=== PATIENT | male | born 1955 | race Caucasian/White ===

== ENCOUNTER 2021-05-20 12:21 | Emergency (ER) | payer OTHER ==
[~2021-05-20] VITALS: Ht 180.3 cm; Wt 65.8 kg
[2021-05-20] MEDS ORDERED: IV NORMAL SALINE 1000 ML BAG IV ONE ×2 (12:30→13:00)
--- NOTE | 2021-05-20 12:53 | NUR ---
PT IS IN ROOM #2A. DR MAYER EVALUATED THE PT.
[2021-05-20 13:06] LABS: HEMATOCRIT 34.5 % (36.7-47.1); MEAN CORPUSCULAR HEMOGLOBIN 25.8 uug (23.8-33.4); MEAN CORPUSCULAR VOLUME 80.9 fL (73.0-96.2); PLATELET COUNT (AUTO) 346 K/uL (152-348)
--- NOTE | 2021-05-20 13:11 | NUR ---
CODE SEPSIS WAS CALLED BY DR MAYER. CODE SEPSIS PROTOCOL STARTED.
[2021-05-20 13:19] LABS: CARBON DIOXIDE 22 mmol/L (21-32); CHLORIDE 101 mmol/L (98-107); CREATININE 3.4 mg/dL (0.6-1.3); GLUCOSE 153 mg/dL (74-106); POTASSIUM 5.1 mmol/L (3.5-5.1); UREA NITROGEN, BLOOD 75 mg/dL (7-18)
[2021-05-20 13:25] LABS: ALANINE AMINOTRANSFERASE 83 U/L (16-63); ALKALINE PHOSPHATASE 79 U/L (50-136); ASPARTATE AMINOTRANSFERASE 141 U/L (15-37); BILIRUBIN,DIRECT 0.4 mg/dL (0.0-0.2); BILIRUBIN,TOTAL 0.5 mg/dL (0.2-1.0); TOTAL PROTEIN, SERUM 8.2 g/dL (6.4-8.2)
[2021-05-20 13:28] LABS: ETHANOL < 3 MG/DL (0-0)
[2021-05-20 13:32] LABS: ACETAMINOPHEN < 2.0 ug/mL (10-30)
[2021-05-20 13:54] LABS: THYROID STIMULATING HORMONE 0.865 mIU/mL (0.358-3.740)
[2021-05-20] MEDS ORDERED: VANCOMYCIN IV 1,000 MG in IV DEXTROSE 5% 250 ML IV ONE (14:00)
[2021-05-20] MEDS ORDERED: CEFTRIAXONE 1 G in IV DEXTROSE 5% 50 ML IV ONE (14:00)
[2021-05-20] MEDS ORDERED: METRONIDAZOLE 500 MG/NS 100ML 100 ML IV ONE ×2 (14:00→14:59)
[2021-05-20] MEDS ORDERED: CEFTRIAXONE /D5W 50ML IVPB **ER PYXIS IV ONE (14:38)
[2021-05-20] MEDS ORDERED: VANCOMYCIN IV 200 ML ONE (15:00)
[2021-05-20 17:05] LABS: *BILIRUBIN,URIN NEGATIVE (NEGATIVE); *BLOOD, URINE 3+ (NEGATIVE); *COLOR,URINE YELLOW (YELLOW); *KETONES,URINE NEGATIVE (NEGATIVE); LEUKOCYTE ESTERASE ,URINE 3+ (NEGATIVE); NITRITE, URINE NEGATIVE (NEGATIVE); UGLUCOSE NEGATIVE (NEGATIVE)
[2021-05-20 17:14] LABS: *AMPHETAMINE, URINE NEGATIVE (NEGATIVE); *CANNABINOID, URINE NEGATIVE (NEGATIVE); *COCCAINE, URINE NEGATIVE (NEGATIVE); *OPIATE, URINE NEGATIVE (NEGATIVE); *PHENCYCLIDINE SCREEN,URINE NEGATIVE (NEGATIVE)
[2021-05-20 17:16] LABS: *CLARITY,URINE TURBID (CLEAR)
[2021-05-20 17:17] LABS: WBC,URINE TNTC /HPF (0-3)
[2021-05-20 17:19] LABS: BACTERIA,URINE MODERATE /HPF (NONE SEEN); SQUAMOUS EPITHELIAL CELL,UR FEW /HPF (NONE SEEN)
--- NOTE | 2021-05-20 17:45 | NUR ---
Received telephone call from Joelle from [facility] who stated pt will be going to [facility], room 4050A, call [phone] for report, Dr. Howe accepting. [facility] ambulance to [facility] pt, eta 1830.
--- NOTE | 2021-05-20 18:18 | NUR ---
REPORT GIVEN TO [facility] [place] R[facility] ALEGRIA. AMBULANCE LORE IS 1830. PT IS RESTING IN BED COMFORTABLY.
--- NOTE | 2021-05-20 19:06 | NUR ---
REPORT WAS GIVEN TO [facility] RN. PT WAS TRANSFERED TO [facility] [place] [facility]IA [facility].
== END 2021-05-20 19:11 | disposition short-term general hospital (02) ==
LOC: ER 12:21
DX: A41.9 Sepsis, unspecified organism (principal); I21.A1 Myocardial infarction type 2; R65.20 Severe sepsis without septic shock; N17.9 Acute kidney failure, unspecified; Z20.822 Contact with and (suspected) exposure to COVID-19; I48.91 Unspecified atrial fibrillation; E86.0 Dehydration; E87.2 Acidosis; R41.0 Disorientation, unspecified
CPT/HCPCS: 36415; 70450; 71045; 80048; 80076; 80299; 80307; 80320; 81001; 82140; 82550; 83605 ×2; 84443; 84484; 85025; 85730; 87040 ×2; 87077; 87086; 87426; 93005; 96361; 96365; 96367; 96368; 99291; J0696; J3370; J3490; 70030-TC; A4663; C1758; G0480